=== PATIENT | female | born 1990 | race Caucasian/White ===

== ENCOUNTER 2021-06-21 13:11 | Outpatient (CLI) | payer OTHER, SELFPAY ==
--- NOTE | ~2021-06-21 | US_ITS ---
EXAMINATION: US OB <=14 wk fetus w TV DATE: 06/21/2021 14:17 INDICATION: Threatened TECHNIQUE: Real-time transabdominal and transvaginal obstetric ultrasound. FINDINGS: No prior studies for comparison. The uterus measures 10.5 x 5.1 x 6.2 cm. There is an intrauterine gestational sac, with pole id entified. No evidence for heart motions. [place]-rump length corresponds to 6 week 5 day gestatio n. [place]-rump length is 0.84 cm. Ovaries are within normal limits. No free fluid in the pelvis. IMPRESSION: 1. Intrauterine demise with size of crown-rump length corresponding to 6 week 5 days. No heart motions detected. Reviewed, dictated and finalized at location B.
== END 2021-06-21 13:12 | disposition home or self-care (01) ==
PROVIDERS: Visit Provider Obstetrics & Gynecology
DX: O20.0 Threatened abortion (principal); Z3A.01 Less than 8 weeks gestation of pregnancy
CPT/HCPCS: 76801; 76817